=== PATIENT | male | born 1935 | race Caucasian/White ===

== ENCOUNTER 2025-08-22 09:27 | Outpatient (AMB) | payer MEDICARE, SELFPAY ==
[2025-08-22 09:30] VITALS: BMI 23.9
--- NOTE | 2025-08-22 09:30 | A.PHYSOV_ITS ---
Vital Signs 08/22/25 09:30 Height 5 ft 9 in Weight 162 lb BMI 23.9 Intake Visit Reasons: left knee injection Intake Note: Patient is a 89 year old male in office today for a left knee injection. Allergies morphine Allergy (Unknown, Verified 08/22/25 09:30) Unknown HPI Comments Details: History of Present Illness The patient is an 89 year old male presenting for a follow-up visit for chronic neck pain and increasing left knee pain. He has a history of chronic right-sided neck pain since a crushing injury in 1994, for which he was diagnosed with several compression fractures but did not undergo surgery. He has had prior occipital nerve blocks which provided excellent but short-lived benefit. He also reports hand numbness and dropping things. Regarding his left knee, he reports increasing pain. Left knee X-rays from January 19, 2024, were consistent with tricompartmental degenerative changes, more severe in the medial tibiofemoral compartment. A left knee injection on February 21, 2025, provided excellent temporary relief. Past medical history is significant for two minor heart attacks in May, which resulted in four ambulance rides to the emergency room. Following this, he was very weak and received home nursing, physical therapy, occupational therapy, and speech therapy, but these services were discontinued as they were found to be overwhelming and exhausting for him. He has a history of multilevel lumbar fusion. Pain Description - Neck Pain: Reports chronic pain, primarily on the right side. - Left Knee Pain: Reports increasing pain. - Left Shoulder Pain: Pain occurs at night, particularly around 2 a.m. when getting up, and is exacerbated by moving his arm over his head, lying on that side, and lifting his arm. - Hand Symptoms: Reports hand numbness and dropping things. Results - Imaging: - Left knee X-rays from January 19, 2024, show tricompartmental degenerative changes, more severe in the medial tibiofemoral compartment. [facility] Medical History (Updated 08/22/25 @ 09:57 by Venu Xavier DO) Post laminectomy syndrome Left shoulder pain Cervical radiculitis Neck pain Left knee DJD Surgical History History of lumbar fusion History of cholecystectomy Pacemaker H/O total knee replacement History of hip replacement Social History Alcohol intake: current Alcohol intake frequency: does not drink Patient Tobacco Use Status: Never used Tobacco Review of Systems Narrative Review of Systems - Constitutional: Denies fever or chills. - Reports weakness and exhaustion following recent heart attacks and subsequent physical therapy. - Musculoskeletal: Reports chronic right-sided neck pain, increasing left knee pain, and left shoulder pain, particularly at night. - Neurological: Reports hand numbness and dropping things. - Gastrointestinal: Denies any change in bowel habits. - Genitourinary: Denies any change in bladder habits. Physical Exam Exam Exam: Physical Exam Patient was examined while sitting in the wheelchair. His gait was not tested today. Cervical range of motion was restricted in all planes. Spurling maneuver was negative. Restricted abduction in left shoulder. Painful end point of abduction. Tenderness with palpation over left deltoid muscle. Neurological examination of upper extremities was nonfocal. Examination of the left knee reveals pain with palpation over medial joint line. No ligamentous i nstability. Crepitance present with flexion-extension. Vital Signs: BMI result Body Mass Index 23.9 Office Procedures AMB Knee Injection AMB Knee Injection Procedure Details: With patient in sitting position medial aspect of the left knee was prepped with Betadine. 1.5 inch 25 gauge hypodermic needle was introduced percutaneously and advanced into the joint. After negative aspiration for blood to the volume of 4 cc containing 40 mg of triamcinolone and 2% lidocaine was injected without resistance. Patient tolerated procedure very well without complications with excellent anesthetic response. Knee Injection - : Left All charges added?: Procedure code (CPT) selection complete Office Meds Kenalog 40 mg/mL suspension for injection Performing Provider: Venu Xavier DO Performing Location[facility] Administered by: Venu Xavier DO on 08/22/25 09:56 Dose Route Admin Location Dispensed Lot Number Expiration Date [facility] [place] [employer] 40 mg intra-articular 1 mL [id number] [employer] Total Dispensed Waste 1 mL 0 % lidocaine (PF) 20 mg/mL (2 %) injection solution Performing Provider: Venu Xavier DO Performing Location: [facility] Administered by: Venu Xavier DO on 08/22/25 09:56 Dose Route Admin Location Dispensed Lot Number Expiration Date [facility] [place] [employer] 40 mg intra-articular 5 mL [id number] [facility] Total Dispensed Waste 5 mL 60 % Assessment & Plan Assessment & Plan (1) Left knee DJD: Code(s): M17.12 - Unilateral primary osteoarthritis, left knee Category: Medical Qualifiers: Osteoarthritis type: primary Qualified Code(s): M17.12 - Unilateral primary osteoarthritis, left knee (2) Neck pain: Code(s): M54.2 - Cervicalgia Category: Medical (3) Cervical radiculitis: Code(s): M54.12 - Radiculopathy, cervical region Category: Medical (4) Left shoulder pain: Code(s): M25.512 - Pain in left shoulder Category: Medical (5) Post laminectomy syndrome: Code(s): M96.1 - Postlaminectomy syndrome, not elsewhere classified Category: Medical Plan Pain Management - Analgesia: The patient previously had a left knee injection on February 21, 2025, which provided temporary relief. - He has a history of occipital nerve blocks for neck pain with excellent but short-lived benefit. - Activities of Daily Living: Recent home physical and occupational therapy was found to be too exhausting and was discontinued. - He reports difficulty with walking exercises due to pain. Plan Patient was informed and verbally consented to the use of an ambient scribe for clinic note documentation during this visit. 1. Left Knee Pain The patient presents with increasing left knee pain, with imaging confirming severe tricompartmental degenerative changes. Given his prior positive but temporary response, a left knee injection was administered during today's visit. 2. Left Shoulder Pain The patient has new-onset left shoulder pain, which could be referred from his neck. The plan is to observe for any improvement following the systemic effect of the steroid from the knee injection. If the shoulder pain does not improve in a couple of weeks, he is to call to schedule a follow-up visit to consider a shoulder injection. 3. Chronic Neck Pain The patient has chronic neck pain with new associated symptoms of hand numbness and dropping things, suggesting a possible radiculopathy. A repeat MRI is indicated, as his last one was a long time ago. An MRI requires a formal office visit for ordering; an attempt will be made to add him to the schedule today to facilitate this. Discussion Notes I discussed the patient's complaints of increasing left knee pain, left shoulder pain, and his chronic neck issues. I administered a left knee injection for his osteoarthritis. Regarding the shoulder pain, I explained that it could be referred from his neck, and a steroid injection into the shoulder could be a future option if symptoms do not improve after the systemic effects of the knee injection. We discussed his new symptoms of hand numbness and dropping items, which are concerning for a cervical spine issue. I explained that a new MRI is necessary but requires an office visit for me to order it. I informed him that we would check my schedule for an immediate opening to accommodate this visit today. Patient Instructions - You received an injection in your left knee today to help with your pain. - If your left shoulder pain does not get any better in about two weeks, please call our office to schedule another appointment to discuss a possible injection for your shoulder. - We need to order a new MRI for your neck because of your ongoing pain and new symptoms like hand numbness. - To order an MRI, we need to have a separate office visit. - We will try to get you in for a visit today while you are here so we can order the MRI. Orders: Orders AMB Knee Injection Today M17.12 - Unilateral primary osteoarthritis, left knee Coding Level of Care Code Est Pt Level 4 (81874) Add On Problem Visit Only Diagnoses Primary osteoarthritis of left knee M17.12 Osteoarthritis type: primary Neck pain M54.2 Cervical radiculitis M54.12 Left shoulder pain M25.512 Post laminectomy syndrome M96.1 CPT Codes AMB Knee Injection - Hip/Bursa Injection - : Left ([id number])
--- OUTSIDE RECORDS SUMMARY | 2025-08-22 10:57 | XMS_ITS ---
Author Organization [facility] Care Team Providers Care Supervisor Veneer Name Role Phone Karley Burch Unavailable Unavailable Kit Licona Unavailable Unavailable Joanna Leach Unavailable Unavailable Allergies and adverse reactions No Known Allergies Care Team Name Role Address Phone Organization Dates Kit Licona PCP [address] [facility] [address], [place], [address], [facility] (Office): [facility] 08/29/2021 - 10/07/2021 Karley Burch [address] [facility] [address] [place] [address], [address], [facility] (Office): [facility] 08/29/2021 - 10/07/2021 Joanna Leach [address] [facility] [address] [place] [address], [address], [facility] (Office): [facility] 08/29/2021 - 10/07/2021 Immunizations Immunization Status Vaccine Details Vaccine Code CodeSystem Date Notes SARS-COV-2 (COVID-19) completed SARS-COV-2 (COVID-19) vaccine, mRNA, spike protein, LNP, preservative free, 30 mcg/0.3mL dose Mfg: Pfizer- BioNTech Step 1 of Multi-step 208 CVX created date: 08/29/2021 administere d date: 07/23/2021 Booster vaccine SARS-COV-2 (COVID-19) completed SARS-COV-2 (COVID-19) vaccine, mRNA, spike protein, LNP, preservative free, 30 mcg/0.3mL dose Mfg: Pfizer- BioNTech Step 2 of Multi-step with next step required 208 CVX created date: 08/29/2021 administere d date: 10/31/2020 SARS-COV-2 (COVID-19) completed SARS-COV-2 (COVID-19) vaccine, mRNA, spike protein, LNP, preservative free, 30 mcg/0.3mL dose Mfg: Pfizer- BioNTech Step 1 of Multi-step with next step required 208 CVX created date: 08/29/2021 administere d date: 10/10/2020 Mental Status Section Date Assessment Total Score Description 10/07/2021 CAM 0 No delirium ind icated 09/03/2021 BIMS 15 cognitively int act CAM 0 No delirium ind icated PHQ-9 00 Insurance Providers Coverage Status Coverage Type Relationship to Subscriber Member Identifier Subscriber Identifier Group Identifier Payer Identifier and Other information 2021 Code: 51 Code System OID:[id number] .[id number]. 5 Code System Name: Source of Payment Typology (PHDMN) Display: Managed Care (Private) Translation: Code: Code System: OID:[id number] .[id number]. 1336 Code System Name: Insurance Type Code ([id number]) Display Name: Health Maintenance Organization (HMO) Plan Code: SELF Code System Name: HL7 RoleCode Code System OID:[id number] .[id number] Display Name: Self [id number] Root: [id number] Payer Identifier: Root: [id number] Extension: [id number] Payer Name: [facility] Address: [address] [id number] City: [place] State: [place] Country: [place] Code: 81 Code System OID:[id number] .[id number]. 5 Code System Name: Source of Payment Typology (PHDSC) Display: Self Pay Translation: Code: 09 Code System: OID:[id number] .[id number]. 1336 Code System Name: Insurance Type Code ([id number]) Display Name: Self-pay Problems Problem # Description Date of onset Resolved Date Code CodeSystem Concern Status 1 DYSPHAGIA, OROPHARYNGEAL PHASE 09/07/[address] active 2 PNEUMONIA, UNSPECIFIED ORGANISM 09/07/[address] active 3 ACUTE CHOLECYSTITIS 08/28/2021 55726479 SNOMED C T active 4 ENCOUNTER FOR SURGICAL AFTERCARE FOLLOWING SURGERY ON THE DIGESTIVE SYSTEM 08/28/[address] active 5 ESSENTIAL (PRIMARY) HYPERTENSION 08/28/[address] active 6 GASTRO-ESOPHAGEAL REFLUX DISEASE WITHOUT ESOPHAGITIS 08/28/[address] active 7 HEART FAILURE, UNSPECIFIED 08/28/[address] active 8 HYPERLIPIDEMIA, UNSPECIFIED 08/28/[address] active 9 HYPOTHYROIDISM, UNSPECIFIED 08/28/[address] active 10 MAJOR DEPRESSIVE DISORDER, RECURRENT, UNSPECIFIED 08/28/[address] active 11 MUSCLE WEAKNESS (GENERALIZED) 08/28/[address] active 12 OTHER ABNORMALITIES OF GAIT AND MOBILITY 08/28/[address] active 13 OTHER AMYLOIDOSIS 08/28/[address] active 14 PRESENCE OF CARDIAC PACEMAKER 08/28/[address] active 15 SPINAL STENOSIS, LUMBOSACRAL REGION 08/28/[address] active 16 UNSPECIFIED ATRIAL FIBRILLATION 08/28/[address] active 17 UNSPECIFIED GLAUCOMA 08/28/[address] active 18 UNSTEADINESS ON FEET 08/28/[address] active Reason for Referral No Reasons for Referral Entered Social History Social History Observation Description Start Date End Date Code Code System Current Smoking Status Tobacco smoking consumption unknown 974349837 SNOMED CT Sex Assigned At Male 1935 86978-5 [facility] Gender Identity Sexual Orientation Vital Signs Code Code System Vitals Name Values and Units Timing Information 79407-4 LOINC O2 % BldC Oximetry Value=99.0 Units= % 10/07/2021 07835-1 LOINC Weight Mynao=978.0 Units=Lbs 8462-4 INC Blood Pressure-Diastolic Value=68 Un its=mmHg 10/07/2021 8480-6 INC Blood Pressure-Systolic Znlkl=226 Un its=mmHg 10/07/2021 8867-4 [facility] Heart rate Value=90.0 Units=/min 9279-1 LOINC Respiratory Rate Value=20.0 Units=/m in 10/07/2021 8310-5 INC Body Temperature Value=97.1 Units= F 10/07/2021 53210-2 LOINC Pain Level Value=0.0 10/07/2021 8302-2 LOINC Height Value=69.0 Units=Inches 08/29/2021
--- OUTSIDE RECORDS SUMMARY | 2025-08-22 10:57 | XMS_ITS | Encounter Summary ---
Author Organization [facility] Address [address] [place] [address] Care Team Providers Care Winder Operator Name Role Phone Domonique Elaine MD Primary Care Provider [phone] Encounter Details Date Type Department Care Team (Late st Contact Info) Description 06/20/2025 Results Follow-Up Adult Medicine [facility] [address] [place] [address] Domonique Elaine MD [address] [place], [place] Social History Tobacco Use Types Packs/Day Years Used Date Smoking Tobacco: Never Smokeless Tobacco: Never Alcohol Use Standard Drinks/Week Comments Not Currently 0 (1 standard drink = 0.6 oz pur e alcohol) Housing Instability Answer Date Recorde d Are you worried that in the next 2 months you may not have stable housing? No 07/27/2025 Food Access & Nutrition Answer Date Rec orded Do you have access to a vari ety of food including fruits and vegetables? Yes 07/27/2025 Access to Healthcare Answer Date Record ed Within the last 3 months, andrés w many times did you visit the emergency department for your medical care? 4 07/27/2025 Health Literacy Answer Date Recorded How often do you need to hav e someone help you when you read instructions, pamphlets, or other written material from your doctor or pharmacy? Rarely 07/27/2025 Caregiver: How often do you need to have someone help you when you read instructions, pamphlets, or other written material from your doctor or pharmacy? Not on file 07/27/2025 Financial Risk Answer Date Recorded How hard is it for you to pa y for the very basics like food, housing, medical care, and air conditioning / heating? Not very hard 07/27/2025 Transportation Answer Date Recorded Has the lack of transportati on kept you from meetings, work, or from getting things needed for daily living? No Has the lack of transportati on kept you from medical appointments or from getting medications? No 07/27/2025 Social Isolation Answer Date Recorded How often do you feel lonely or isolated from th ose around you? Never 07/27/2025 Food Risk Answer Date Recorded Within the past 12 months we worried whether our food would run out before we got money to buy more. Never true 07/27/2025 Within the past 12 months th e food we bought just didn't last and we didn't have money to get more. Never true 07/27/2025 Dependent Care Answer Date Recorded Do you need help finding or paying for care for your loved ones. For example, child nutrition director or elderly care for an older adult? No 07/27/2025 Education Answer Date Recorded Do you think completing more education or training, like finishing a GED, going to college, or learning a trade, would be helpful for you? No 07/27/2025 Employment and Income Answer Date Recor ded During the last four weeks, have you been actively looking for work? No 07/27/2025 Living Situation Answer Date Recorded What is your living situation? Unrecognized valu e 07/27/2025 Sex and Gender Information Value Date Recorded Sex Assigned at Male 03/22/2025 1:07 PM EDT Legal Sex Male 6:03 PM EST Gender Identity Male 03/22/2025 1:07 PM EDT Sexual Orientation Straight 03/22/2025 1: 07 PM EDT documented as of this encounter Plan of Treatment Upcoming Encounters Date Type Department Care Team (Late st Contact Info) Description 10/16/2025 10:40 AM EST Office Visit [facility] Cardiology [facility] [place] [address] [place] [address] Karley Smyth NP [address] [facility] [address] [place] [phone] 11/08/2025 11:30 AM EST Office Visit Adult Medicine [facility] [address] [place] [phone] Domonique Elaine MD [address] [place] [phone] 01/08/2026 10:30 AM EDT Ancillary Procedure [facility] [address] [facility] [address] [place] [phone] documented as of this encounter Visit Diagnoses Not on filedocumented in this encounter Additional Health Concerns Assessment Noted Time PHQ-9 Depression Total Score: 1 03/15/20 25 3:35 PM EDT documented as of this encounter Care Teams Winder Operator Relationship Specialty Start Date End Date Domonique Elaine MD [address] [place] [address] PCP - General Internal Medicine 07/20/24 documented as of this encounter
--- OUTSIDE RECORDS SUMMARY | 2025-08-22 10:57 | XMS_ITS | Clinical Summary ---
Author Organization [address] [facility] Address [address] [place] [address] Phone Care Team Providers Care Clinical Research Specialist Name Role Phone Domonique Elaine MD Primary Care Provider [phone] Allergies Active Allergy Reactions Criticality Noted Date Comments Morphine High 01/28/2024 Hypotensive Medications aspirin 81 mg EC tablet 1 (one) time each day. 07/07/20 23 Active ondansetron (ZOFRAN) 4 mg tablet Take 1 tablet (4 mg total) by mouth every 8 (eight) hours if needed. 10/21/19 24 Active sertraline (ZOLOFT) 100 mg tablet Take 1.5 tablets (150 mg total) by mouth 1 (one) time each day. Take 1 Tablet by mouth daily. Taking with a 25mg tablet = total 125mg qd Active cyclobenzaprin e (FLEXERIL) 5 mg tablet Take 1 Tablet by mouth 3 times daily as needed for Muscle spasms for up to 10 days. 09/10/19 23 Active tafamidis (Vyndamax) 61 mg capsule Take 1 tablet by mouth 1 (one) time each day. Active acetaminophen (TYLENOL 8 HOUR) 650 mg 8 hr tablet Take 1 tablet (650 mg total) by mouth 2 (two) times a day. Active latanoprost (XALATAN) 0.005 % ophthalmic solution Administer 1 drop into affected eye(s) at bedtime. 06/01/20 12 Active vutrisiran (AMVUTTRA) syringe Inject 0.5 mL (25 mg total) under the skin every 3 (three) months. Active spironolactone (ALDACTONE) 25 mg tablet Take 0.5 tablets (12.5 mg total) by mouth 1 (one) time each day. 45 tablet 3 11/01/19 25 Active fluticasone propionate (FLONASE) 50 mcg/actuation nasal sprayIndicatio ns:Unspecified eustachian tube disorder, bilateral INSTILL 1 SPRAY INTO EACH NOSTRIL ONCE DAILY 32 mL 2 12/15/19 25 Active atorvastatin (LIPITOR) 80 mg tablet Take 1 tablet (80 mg total) by mouth 1 (one) time each day. 90 tablet 3 02/17/20 25 Active midodrine (PROAMATINE) 10 mg tabletIndicati ons:Orthostati c hypotension TAKE 1 TABLET BY MOUTH 3 TIMES A DAY BEFORE MEALS. 270 tablet 3 04/20/20 25 Active levothyroxine (SYNTHROID, LEVOTHROID) 50 mcg tablet Take 1 tablet (50 mcg total) by mouth 1 (one) time each day. 90 tablet 1 04/25/20 25 Active pantoprazole (PROTONIX) 40 mg EC tablet TAKE 1 TABLET BY MOUTH EVERY DAY 90 tablet 06/02/20 25 Active nitroglycerin (NITROSTAT) 0.[address] 1 tablet (0.3 mg total) under the tongue every 5 (five) minutes if needed for chest pain. 100 tablet 1 06/01/20 25 Active cetirizine (ZyrTEC) 10 mg tablet Take 1 tablet (10 mg total) by mouth 1 (one) time each day. Active cholecalcifero l (VITAMIN D-3) 5,000 Units tablet Take 1 tablet (5,000 Units total) by mouth 1 (one) time each day. Active isosorbide mononitrate (IMDUR) 60 mg 24 hr tablet Take 1 tablet (60 mg total) by mouth 1 (one) time each day in the morning. Do not crush or chew. 90 tablet 2 06/27/20 25 Active isosorbide mononitrate (IMDUR) 30 mg 24 hr tablet Take 1 tablet (30 mg total) by mouth 1 (one) time each day in the evening. Do not crush or chew. 90 tablet 1 07/04/20 25 Active furosemide (LASIX) 40 mg tablet Take 2 tablets (80 mg total) by mouth 1 (one) time each day in the morning. 180 tablet 1 07/17/20 25 Active potassium chloride (KLOR-CON M10) 10 mEq CR tablet Take 3 tablets (30 mEq total) by mouth 1 (one) time each day. Tablet may be swallowed whole (do not crush/chew/chirinos ck on) OR broken in half and each half swallowed separately OR dissolved (whole tablet) in ~4 ounces of water (allow ~2 minutes to dissolve, stir well and administer immediately). 270 tablet 2 07/19/20 Active predniSONE (DELTASONE) 20 mg tablet Take 60 mg PO daily for 3 days, then take 40 mg PO daily for 3 days, then 20 mg PO daily for 3 days, then stop 18 tablet 07/27/20 Active ranolazine (Ranexa) 500 mg 12 hr tablet Take 2 tablets (1,000 mg total) by mouth 2 (two) times a day. Do not crush, chew, or split. 360 each 2 08/11/20 Active ranolazine (RANEXA) 1,000 mg 12 hr tablet Take 1 tablet (1,000 mg total) by mouth 2 (two) times a day. Do not crush, chew, or split. 025 Discontinued nystatin (MYCOSTATIN) 100,000 unit/mL suspension Take 5 mL (500,000 Units total) by mouth 4 (four) times a day for 7 days. Swish in mouth and spit out. 140 mL 07/20/20 25 025 Discontinued(Re order) nystatin (MYCOSTATIN) 100,000 unit/mL suspension Take 5 mL (500,000 Units total) by mouth 4 (four) times a day for 7 days. Swish in mouth and spit out. 140 mL 08/01/20 25 025 carbamide peroxide (DEBROX) 6.5 % otic solution Administer 5-10 drops into the left ear 2 (two) times a day for 4 days. 8 mL 08/10/20 25 025 Active Problems Problem Noted Date Diagnosed Date Moderate major depression 08/10/2025 Hypercholesteremia 06/22/2024 Assessment & Plan (01/16/2025 12:48 PM EDT): Continue with atorvastatin. Chronic HFrEF (heart failure with reduced ejection fraction) 06/17/2024 Overview (01/16/2025): June 2024 echocardiogram showing low normal LV systolic function LVEF 50 to 55% with severe concentric left ventricular hypertrophy with granular appearance, abnormal paradoxical septal motion consistent with left bundle branch block, mild biatrial dilatation, mildly increased RV wall thickness, diffuse thickening of aortic valve cusps with reduced excursion with mild aortic stenosis and moderate aortic insufficiency, mild to moderate mitral regurgitation mild to moderate tricuspid regurgitation and dilatation of the ascending aorta at 4.2 cm Assessment & Plan (07/04/2025 3:20 PM EDT): The patient has a history of HFrEF. Last echo showed an LVEF of 45%. 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 The patient is also on medical therapy with spironolactone which we will continue. The patient is unlikely to be able to tolerate additional GDMT due to his orthostatic hypotension. Assessment & Plan (04/20/2025 12:04 PM EDT): Patient has history of mixed ischemic and nonischemic cardiomyopathy. He does not present with any worsening heart failure symptoms. He was recently seen in [place] and was advised that Jardiance would be a good medication for him. His creatinine is normal. The use of an SGLT2 inhibitor is recommended for patients with chronic heart failure in order to reduce hospitalization due to heart failure and cardiovascular mortality, irrespective of the presence of type 2 diabetes (class Ia recommendation from the [employer] heart failure guidelines). As such I have prescribed Jardiance 10 mg once a day. We discussed the slight increased risk of possibly developing a urinary tract infection and I have advised that the patient contact his primary care provider if he were to develop any symptoms of urinary tract infection and to also let us know. He recently had blood work done which is stable. He will repeat a basic metabolic panel 1 to 2 weeks after starting the Jardiance. Otherwise he will continue with his guideline directed medical therapies including furosemide and spironolactone. I've asked the patient to call if they develop worsening symptoms of heart failure such as increased shortness of breath, new or worsening cough, increased swelling in the legs or ankles, or weight gain of more than 2 pounds in one day or 4 pounds in one week. Assessment & Plan (01/16/2025 12:48 PM EDT): Mixed ischemic and nonischemic cardiomyopathy. He is currently compensated on exam. Continue with furosemide, midodrine and spironolactone as well as amyloidosis medications. Unlikely to tolerate further up titration of GDMT. We reviewed heart failure management including low-sodium diet, symptom surveillance, daily weights and medication compliance. The patient is aware they may take extra diuretic for intermittent evidence of mild congestive signs and symptoms. If the increase of frequency of as needed diuretic becomes more regular than they will make our office aware. If the patient has weight gain over 3lbs in one day or 5lbs over several days, they are aware to contact our office. With any severe or sustained symptoms, they are aware to contact EMS via 911 and go to the emergency room. Assessment & Plan (10/26/2024 5:48 PM EST): The patient has a history of heart failure with mildly reduced ejection fraction due to his cardiac amyloidosis. He is currently on diuretic therapy with furosemide and spironolactone. As such, we will continue his current medication regimen. 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 He is currently on midodrine 10 mg orally 3 times daily and he is tolerating the medication well. No significant symptoms of orthostatic dizziness or syncope. Will continue his current medication regiment. Assessment & Plan (01/16/2025 12:48 PM EDT): Positional lightheadedness stable. He gets up slowly. Consider compression stockings. Continue with midodrine. Assessment & Plan (10/26/2024 5:48 PM EST): The patient has a hx of orthostatic hypotension seccondary to his cardiac amyloidosis. Will continue current therapy with midodrine. Orders: midodrine (PROAMATINE) 10 mg tablet; Take 1 tablet (10 mg total) by mouth 3 (three) times a day before meals. Pacemaker 05/29/2023 Overview (01/16/2025): October 06, 2018 - [employer]tronic dual-chamber pacemaker by Dr. Trevizo due to symptomatic bradycardia Assessment & Plan (07/04/2025 3:20 PM EDT): The patient has a pacemaker in place. Last device interrogation showed an adequate device function. Will continue periodic monitoring Assessment & Plan (01/16/2025 12:48 PM EDT): Functioning well on last device check. Nearly 100% V pacing. Will monitor LV function and consider MEDICAL SERVICE REPRESENTATIVE therapy if necessary. Continue to monitor via [facility] device clinic. Primary hypertension 05/29/2023 Assessment & Plan (01/16/2025 12:48 PM EDT): Controlled. Continue with furosemide, midodrine, spironolactone. Chronic subdural hematoma 05/29/2023 Overview (01/16/2025): Patient is 4-1/2 months s/p left bur hole drainage of subdural hematoma. He had brain MRI 11/10/2023 ordered for dizziness, he has scattered T2 hyperintensities in supratentorial white matter and patchy T2 signal in the central tran, nonspecific but likely chronic microvascular ischemic disease. He also has decreased/small subdural collection along the posterior left convexity. I reviewed the MRI images with the patient and his daughter. He is still having issues with dizziness, states when he lays flat on his back he gets dizzy, he also notes when laying on his left side he gets a pressure sensation in the top of the left head near his surgery site, but no pain or headache. He mentioned that his left hand will feel cold at times, in general his left arm feels weak, he will get sharp pains in the arm. 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 He has an upcoming upper extremity EMG/NCS study ordered 01/15/2024 in [place], his neurology appointment was rescheduled to sometime in December as well. He has been using a walker, did come up to the office in a wheelchair, states he is feeling more tired and his left knee is sore today. He has history of left carpal tunnel release 2012. A little over a year ago he also saw Dr. Wheeler for neck pain, his cervical CT scan showed extensive degenerative arthritic changes, pannus formation behind C1-C2 and autofusion of C1-C2 3 C3-4 and C6-C7. He notes some decreased range of motion with flexion extension >looking left and right. CAD (coronary artery disease) 01/01/2023 Overview (01/16/2025): Coronary artery disease status post RCA stenting 10/19/24 NM STRESS TEST WITH MYOCARDIAL PERFUSION 10/19/2024, 10/19/2024 10/19/2024 Interpretation Summary Nuclear imaging of the left ventricle shows a dilated cavity size. Myocardial perfusion imaging of the left ventricle reveals a small, moderate, fixed perfusion defect of the apical septal and apical wall after CT attenuation correction was applied to the study Gated SPECT imaging was performed which demonstrated abnormal left ventricular systolic function. There is hypokinesis of the inferior wall and apex. The calculated LVEF is 44 %. TID ratio is normal. Impression Abnormal Regadenoson stress test with nuclear imaging. No chest pain or EKG changes consistent with ischemia. Nuclear imaging revealed a small, moderate, fixed defect of the apical wilkes consistent with infarct There is a normal TID ratio. Gated SPECT imaging was performed and revealed a reduced LVEF of 44 %. Signed by: SAMANTHA Ramirez on 10/19/2024 3:37 PM, Signed by: Ant Chen MD on 10/19/2024 4:34 PM Assessment & Plan (07/04/2025 3:20 PM EDT): The patient has a history of coronary artery disease. Left heart cath showed evidence of significant stenosis in the distal left main extending into the proximal circumflex, ramus, and proximal LAD. The patient is not a candidate for CABG given his advanced age and other comorbidities. The interventional cardiology service recommended medical therapy with consideration of a high risk PCI if the patient's symptoms are not adequately controlled with medical therapy. I had an extensive conversation with the interventional cardiology service (Dr. Wild) regarding the patient's CAD. I discussed the patient's complex CAD with the patient and his family member. We discussed the options of continued titration of medical therapy versus opting for high risk PCI. After conversation, the patient stated that he would like to continue on medical therapy only for now. As such, given his continued episodes of chest discomfort, we will continue with isosorbide mononitrate 60 mg orally in the morning and the patient will start extra supplemental nitrate 30 mg orally in the evening. The patient will continue the rest of his current medication regimen including aspirin, atorvastatin, and ranolazine. The patient has a history of coronary artery disease. During today's visit, we reviewed the warning signs that should prompt an urgent medical evaluation. Specifically, we discussed that the patient should go to the hospital if she develops any chest discomfort at rest not responsive to sublingual nitro or worsening chest discomfort with exertion. Assessment & Plan (04/20/2025 12:04 PM EDT): History of coronary artery disease status post previous RCA stenting. Last nuclear stress test in October 2024 did not show any evidence of ischemia. I have reviewed with the patient the importance of a heart healthy lifestyle which includes eating a low-fat low-salt diet, getting regular exercise, maintaining a healthy weight, not smoking, and following up with routine medical care. Assessment & Plan (01/16/2025 12:48 PM EDT): Previous RCA stenting Last Nuclear stress test showed no ischemia in October 2024. Echocardiogram from June 2024 showed low normal LV systolic function. Had two episodes of chest pain resolving quickly with nitroglycerin. No further symptoms. Continue with aspirin, atorvastatin, prn nitroglycerin, ranolazine and spironolactone. We discussed risk reduction through lifestyle choices including healthy diet, routine exercise and weight management. Assessment & Plan (10/26/2024 5:48 PM EST): The patient has a history of coronary artery disease status post stent to the proximal RCA. The patient is on medical therapy with aspirin, atorvastatin, and ranolazine. He has had two episodes of atypical chest discomfort since his last visit. Therefore, will proceed with an ischemic reevaluation with a nuclear stress test. Orders: Regadenoson (Lexiscan) nuclear stress test with myocardial perfusion; Future CBC and differential; Future Comprehensive metabolic panel; Future Lipid panel with reflex to direct LDL; Future Shortness of breath 05/21/2022 Assessment & Plan (10/26/2024 5:48 PM EST): The patient has chronic exertional dyspnea. The patient has a history of a right sided pleural effusion s/p thoracentesis in the past. On today's visit, he had decreased breath sounds in the right lung base. Therefore, will order a chext xray for further evaluation. 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 He continues on tafamidis and vutrisiran. Assessment & Plan (01/16/2025 12:48 PM EDT): Currently endorse macroglossa and encouraged patient to report symptoms to amyloid clinic. Continue with tafamidis and vutrisiran. Currently participating in the [facility] clinical trial. Assessment & Plan (10/26/2024 5:48 PM EST): The patient has a history of cardiac amyloidosis for which he is followed at the [facility] amyloidosis clinic. He is on therapy with tafamidis. Also, he was recently switched from patrisiran to vutrisiran as a part of his clinical trial for amyloidosis. The patient states that he has been having multiple symptoms since switching medications. He was encouraged to contact the clinical trial coordinator to discuss his symptoms and the next steps in the management of the medication. Atrial fibrillation 01/20/2017 Overview (01/16/2025): September 24, 2023 - successful Watchman procedure with confirmed closure by JESSICA in December 2023 now off apixaban Assessment & Plan (04/20/2025 12:04 PM EDT): Patient has atrial fibrillation. Heart rate is well-controlled. He had successful watchman placed therefore he is not on anticoagulation. Assessment & Plan (01/16/2025 12:48 PM EDT): Per last device check has a 95.6% burden of atrial fibrillation therefore still paroxysmal. Asymptomatic. Not on rate control. Successful Watchman therefore not on apixaban. Orders: ECG 12 lead DVT, lower extremity 08/27/2016 Carotid stenosis 07/10/2016 Overview (06/22/2024): S/p CEA in 2012 (Dr. Lozano), Aortic regurgitation 07/10/2016 Assessment & Plan (10/26/2024 5:48 PM EST): The patient has a history of aortic valve insufficiency. On the echocardiogram done in June 2024 the aortic valve insufficiency was noted to be moderate in severity. Therefore, no indication for any intervention at this point. Will continue periodic echocardiographic monitoring. 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 Short segment Taylor's at EGD 06/01/18, no dysplasia. 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 Sobeida Chin clinic Resolved Problems Problem Noted Date Diagnosed Date Resolved Date CHF (congestive heart failure) 06/09/2025 06/09/2025 Pleural effusion 06/17/2024 10/10/2024 Chest pain 01/16/2022 10/10/2024 Overview (06/22/2024): Last Assessment & Plan: In review of his records, he did have an abdominal CAT scan in 2016 that noted normal in caliber aorta with atherosclerosis. Patient states that he had an episode of chest pain while mowing 2 days ago. The chest pain dissipated once he sat down in his recliner. He reports he has had episodes of chest pain at rest in the past, but not with exertion. It did not radiate. Patient does have multiple cardiac risk factors and therefore I recommended he undergo an ischemic work-up. I recommended that we proceed with a pharmacologic nuclear stress test. He is in agreement. He is going to be at the amyloid clinic in mid February and states he is due for extensive testing including an echocardiogram. Patient advised to seek emergency medical attention by calling 911 if they were to develop severe dyspnea, chest pain that did not resolve with , or if they were to faint. Atherosclerosis of aorta 01/16/202211/2024 Overview (01/16/2025): Known atherosclerotic changes to the abdominal aorta with no evidence of abdominal aortic aneurysm also seen on abdominal CAT scan 2016 that showed atherosclerosis of his aorta. Assessment & Plan (01/16/2025 12:48 PM EDT): Continue with aspirin, atorvastatin, prn nitroglycerin, ranolazine and spironolactone. We discussed risk reduction through lifestyle choices including healthy diet, routine exercise and weight management. Encounters Date Type Department Care Team Description 08/10/2025 2:00 PM EST Office Visit [address] [phone] Domonique Elaine MD Moderate major depression (CMS/HCC V24, CMS/HCC V28) (Primary Dx); Type 2 diabetes mellitus without complication, without long-term current use of insulin (CMS/HCC V24, CMS/HCC V28); Hearing loss of left ear due to cerumen impaction 07/27/2025 1:30 PM EST Office Visit [address] [phone] Elsie Zapata PA Acute idiopathic gout of left wrist (Primary Dx); Hypotension due to hypovolemia; Chronic HFrEF (heart failure with reduced ejection fraction) (CMS/HCC V24, CMS/HCC V28) 07/07/2025 Results Follow-Up [address] [phone] Domonique Elaine MD 07/05/2025 11:03 AM EDT - 07/05/2025 11:59 PM EDT Hospital Encounter [address] [phone] Gagging episode Discharge Disposition: Home or Self Care 07/05/2025 10:00 AM EDT Office Visit [address] [phone] Domonique Elaine MD Gagging episode (Primary Dx); Acquired hypothyroidism; Gastroesophageal reflux disease without esophagitis 06/20/2025 Results Follow-Up Adult [address] [phone] Domonique Elaine MD 06/19/2025 1:56 PM EDT - 06/19/2025 11:59 PM EDT Hospital Encounter [address] [phone] Lumbosacral radiculopathy Discharge Disposition: Home or Self Care 06/19/2025 1:00 PM EDT Office Visit [address] [phone] Domonique Elaine MD Hospital discharge follow-up (Primary Dx); NSTEMI (non-ST elevated myocardial infarction) (CMS/HCC V24, CMS/HCC V28); Physical deconditioning; Lumbosacral radiculopathy; Hypercholesteremia 06/09/2025 2:30 PM EDT Office Visit [facility] [address] [place] [id number] Odin Hamlin MD Coronary artery disease involving hoonah coronary artery of hoonah heart with other form of angina pectoris (CMS/HCC V24) (Primary Dx); Chronic HFrEF (heart failure with reduced ejection fraction) (CMS/HCC V24, CMS/HCC V28); Orthostatic hypotension; Pacemaker; Shortness of breath; Nonrheumatic aortic valve insufficiency 05/31/2025 Telephone [facility] - [address] [place] [id number] Karley Beach NP from Last 3 Months Immunizations Immunization Administration Dates Next Due Influenza trivalent, 0.5mL ( Fluad) 65yo and older 05/15/2023,05/21/2022,06/06/2021,06/23,05/11/2018,06/02/2017 Influenza trivalent, 0.5mL, preservative free (Fluarix; FluLaval; Fluzone) ages 6mo and older (Afluria) 3 years and older 06/28/2014,07/07/2013,07/08/2011,07/23,06/06/2009,05/30/2008,06/11/2007 ,08/06/2006,07/15/2005 Influenza trivalent, with pr eservative (Fluzone; Afluria) 6mo and older 07/17/2016 Influenza, Unspecified 06/25/2019,07/16/2016 Pneumococcal conjugate 13 va lent (Prevnar 13, PCV13) 2mo and older 09/12/2015 Pneumococcal polysaccharide 23 valent (Pneumovax 23) 2yo and older 09/12/2015,06/11/2007 Td Tetanus diptheria (Tdvax) 7yo and older 06/11/2007 Tdap Tetanus diptheria acell ular pertussis (Boostrix; Adacel) 7yo and older 11/29/2013,06/11/2007 Zoster Live 09/11/2010 Zoster recombinant (Shingrix ) 19yo and older 07/12/2011 Surgical History Surgery Date Site/Laterality Comments TURP / TRANSURETHRAL INCISIO N / DRAINAGE PROSTATE PROCEDURE: HISTORICAL TURP; COMMENT: x2, also surgery for prostate/urethral strictures CAROTID ENDARTERECTOMY 01/2013 Right PROCEDURE: HISTORICAL CAROTID ENDART; COMMENT: Dr Lozano ABDOMINAL SURGERY 09/10/2013 PROCEDURE: OR UNLISTED PROCEDURE ABDOMEN PERITONEUM & OMENTUM; COMMENT: x5 exlap, ANAMIKA for SB volvulus, incisional hernia OTHER SURGICAL HISTORY 2013 Left PROCEDURE: OR LAPAROSCOPY SURGICAL ORCHIECTOMY CATARACT EXTRACTION 2013 Bilateral PROCEDURE: HISTORICAL CATARACT REMOVAL HAND SURGERY Right PROCEDURE: HISTORICAL HAND SURGERY; COMMENT: [facility] [place] TOTAL KNEE ARTHROPLASTY Right PROCEDURE: HISTORICAL TOTAL KNEE REPLACE; COMMENT: Dr. Zavala 2017 BACK SURGERY 2018 PROCEDURE: HISTORICAL BACK SURGERY; COMMENT: Lumbar fusion done in [place] BACK SURGERY 2016 PROCEDURE: HISTORICAL BACK SURGERY; COMMENT: x4 previous low back surgical procedures HIP ARTHROPLASTY 06/2012 Right PROCEDURE: HISTORICAL HIP REPLACEMENT; COMMENT: Dr Zavala KNEE SURGERY Left PROCEDURE: HISTORICAL KNEE SURGERY; COMMENT: arthroscopy FOOT SURGERY Left PROCEDURE: HISTORICAL FOOT SURGERY; COMMENT: great toe BACK SURGERY PROCEDURE: HISTORICAL BACK SURGERY; COMMENT: L3 decompression dr [id number] CARPAL TUNNEL RELEASE Left PROCEDURE: HISTORICAL CARPAL TUNNEL REL; COMMENT: Dr Gregory 2012 UPPER GASTROINTESTINAL ENDOSCOPY 06/16/2014 PROCEDURE: OR UPPER GI ENDOSCOPY PERFORMED; COMMENT: Short segment of Taylor's, no dysplasia COLONOSCOPY 12/01/2006 PROCEDURE: HISTORICAL COLONOSCOPY; COMMENT: [email or web address], negative screening examination. COLONOSCOPY 06/01/2018 PROCEDURE: HISTORICAL COLONOSCOPY; COMMENT: Solitary diminutive hyperplastic polyp. 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 Russ OTHER SURGICAL HISTORY 09/24/2023 PROCEDURE: HISTORY OTHER; COMMENT: Watchman device placement, Dr. 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 Actinic keratosis 10/10/2015 DX:Actinic ker atosis Cardiac amyloidosis ([facility] V24, [facility] V28) 03/26/2017 DX:Cardiac amyloidosis (HCC) ; COMMENT: Followed in [facility] Dx 2017 Iron deficiency anemia 03/19/2018 DX:Iron d eficiency anemia Peripheral arterial disease ([facility]/HCC V24) 03/19/2018 DX:Peripheral arterial disea se (HCC) Anxiety 03/19/2018 DX:Anxiety Foot drop, right 03/19/2018 DX:Foot drop, r ight Biceps tendon rupture 03/19/2018 DX:Biceps tendon rupture Abnormal EKG 04/07/2014 DX:Abnormal EKG 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 Sobeida Chin [facility] Cardiac murmur 07/10/2016 DX:Cardiac murmu r Carotid stenosis 07/10/2016 DX:Carotid sten osis; COMMENT: S/p CEA in 2013 (Dr. Lozano), last US by Dr. Gillette. 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 Nonhealing nonsurgical wound 01/05/2014 DX: Nonhealing nonsurgical wound Osteoarthritis of both knees 03/19/2018 DX: Osteoarthritis of both knees Paroxysmal atrial fibrillati on (CMS/HCC V24, CMS/HCC V28) 01/20/2017 DX:Paroxysmal atrial fibrill ation (HCC) Subclinical hypothyroidism 01/18/2015 DX:Chirinos bclinical hypothyroidism History of permanent cardiac pacemaker placement 10/20/2018 DX:History of permanent card iac pacemaker placement History of squamous cell car cinoma of skin 03/12/2021 DX:History of squamous cell carcinoma of skin; COMMENT: 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 is dermal metastases to the site versus primary tumor cannot be excluded) & left leg (well differentiated, invasive) Hypertension Chest pain Chronic GERD Hypotension Family History Medical History Relation Name Comments Heart attack Father , [place] ag e 59 Heart attack Mother Heart attack Sister 1 CHF, multiple s tents, Aortic Valve surgery, DM Relation Name Status Comments Father (Age 59) heart Mother (Age 86) Sister 1 Sister 2 Alive aortic valve ca bg dm cholest htn Social History Tobacco Use Types Packs/Day Years Used Date Smoking Tobacco: Never Smokeless Tobacco: Never Tobacco Cessation:Counseling Given: Not Answered Alcohol Use Standard Drinks/Week Comments Not Currently [...] Record ed Within the last 3 months, ho w many times did you visit the [...] care for your loved ones. For example, children's ministry director or elderly care for an older [...] Orientation Straight 03/22/2025 1: 07 PM EDT Last Filed Vital Signs Vital Sign Reading Time Taken Comments Blood Pressure 123/74 08/10/2025 3:39 PM EST Pulse 85 08/10/2025 3:39 PM EST Temperature 36.3 C (97.4 F) 08/10/2025 3:39 PM EST Respiratory Rate 14 08/10/2025 3:39 PM EST Oxygen Saturation 95% 08/10/2025 3:39 PM EST Inhaled Oxygen Concentration - - Weight 73.8 kg (162 lb 12.8 oz) 08/10/2025 3:39 PM EST Height 175.3 cm (5' 9 ) 08/10/2025 3:39 PM EST Body Mass Index 24.04 08/10/2025 3:39 PM EST Plan of Treatment Upcoming Encounters Date Type Department Care Team (Late st Contact Info) Description 10/16/2025 10:40 AM EST Office Visit [facility] [address] [place] [address] [place] [phone] Karley Smyth NP [address] [place] [address] [address] [place] [phone] 11/08/2025 11:30 AM EST Office Visit Adult Medicine [address] [phone] Domonique Elaine MD [address] [place] [phone] 01/08/2026 10:30 AM EDT Ancillary Procedure [facility] [address] [facility] [address] [place] [phone] Health Maintenance Due Date Last Done Comments Diabetes: Annual Foot Exam 1945 Diabetes: Annual Retina Eye Exam 1945 Zoster Vaccines (2 of 2) 09/06/2011 07/12/2011, 01/2011 RSV Immunization Adult Patients (1 - 1-dose 75+ series) 2012 Medicare Annual Wellness Visit 08/16/2022 Diabetes: Blood Sugar Control Test (HGBA1C) 05/23/2023 11/20/2022 DTaP,Tdap,and Td Vaccines (4 - Td or Tdap) 11/30/2023 11/29/2013, 06/11/2007, 06/11/2007 COVID-19 Vaccine (4 - season) 2025 07/23/2021, 10/31/2020, 10/10/2020 Hypertension/CHF/CAD Annual BMP Blood Test 10/11/2025 10/11/2024, 03/16/2024, 12/08/2017 Falls Risk Assessment 07/27/2026 07/27/2025 Social Influencers of Health Screening 07/27/2026 07/27/2025 Cholesterol Screening (Lipid Panel) 10/11/2029 10/11/2024, 11/20/2022 Pneumococcal Vaccine: 50+ Years Completed 09/12/2015, 09/12/2015, 06/11/2007 Influenza Vaccine Completed 06/04/2025, , 05/21/2022, Additional history exists Depression Screening Completed 07/27/2025 HIB Vaccines Aged Out No longer eligi ble based on patient's age to complete this topic HPV Vaccines Aged Out No longer eligi ble based on patient's age to complete this topic Hepatitis A Vaccines Aged Out No long er eligible based on patient's age to complete this topic Hepatitis B Vaccines Aged Out No long er eligible based on patient's age to complete this topic IPV Vaccines Aged Out No longer eligi ble based on patient's age to complete this topic MMR Vaccines Aged Out No longer eligi ble based on patient's age to complete this topic Meningococcal ACWY Vaccine Aged Out N o longer eligible based on patient's age to complete this topic Meningococcal B Vaccine Aged Out No l onger eligible based on patient's age to complete this topic RSV Immunization Patients Under 20 months Aged Out No longer eligible based on patient's age to complete this topic Varicella Vaccines Aged Out No longer eligible based on patient's age to complete this topic Medical Devices Implanted Type [employer] Device Identifier Shelf Expiration Date Model / Serial / Lot Medt-Card Ene Xt Dr Avalos [id number] Implanted: (Quantity not on file) Cardiac Pacemaker [employer] - CARDIAC RHYTH-CRDM ENE XT DR AVALOS [id number] / [id number] / Medt-Card Stella Xt Dr Avalos [id number] Implanted: (Quantity not on file) Cardiac Pacemaker [employer] - CARDIAC RHYTH-CRDM ENE XT DR AVALOS / [id number] / Procedures Procedure Name Priority Date/Time Associated Diagnosis Comments XR CHEST 2 VIEWS Routine 07/05/2025 11:1 9 AM EDT Gagging episode XR LUMBAR SPINE 4+ VIEWS Routine 06/19/2025 2:11 PM EDT Lumbosacral radiculopathy ECG EXTERNAL Routine 06/06/2025 1:54 PM EDT COMPREHENSIVE METABOLIC PANEL Routine 10/11/2024 12:04 PM EST 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 Chronic elevation of the right hemidiaphragm. -------- FINAL REPORT -------- Dictated By: Christina Carmona Dictated Date: 07/05/2025 16:14 ET Assigned Physician: Christina Carmona Reviewed and Electronically Signed By: Christina Carmona Signed Date: 07/05/2025 16:15 ET Workstation ID: [id number] Transcribed By: Self Edit Transcribed Date: 07/05/2025 16:14 ET Narrative 07/05/2025 4:15 PM EDT HISTORY: cough with TECHNIQUE: PA and lateral radiographs of the chest COMPARISON: Chest radiograph from 10/11/2024 FINDINGS: There is a normal cardiomediastinal silhouette. Blunting of the right costophrenic angle suggesting pleural thickening. There is elevation of the right hemidiaphragm with atelectasis. The lungs are otherwise clear. Left-sided pacemaker is identified. Surgical dipti overlying the right upper quadrant. Postoperative changes of the lumbar spine. Moderate degenerative changes of the thoracic spine. Procedure Note Christina Carmona MD - 07/05/2025 HISTORY: cough with TECHNIQUE: PA and lateral radiographs of the chest COMPARISON: Chest radiograph from 10/11/2024 FINDINGS: There is a normal cardiomediastinal silhouette. Blunting of the rightcostophrenic angle suggesting pleural thickening. There is elevation ofthe right hemidiaphragm with atelectasis. The lungs are otherwise clear.Left-sided pacemaker is identified. Surgical dipti overlying the rightupper quadrant. Postoperative changes of the lumbar spine. Moderatedegenerative changes of the thoracic spine. IMPRESSION: No acute cardiopulmonary process. Chronic elevation of the right hemidiaphragm. -------- FINAL REPORT -------- Dictated By: Christina Carmona Dictated Date: 07/05/2025 16:14 ET Assigned Physician: Christina Carmona Reviewed and Electronically Signed By: Christina Carmona Signed Date: 07/05/2025 16:15 ET Workstation ID: [id number] Transcribed By: Self Edit Transcribed Date: 07/05/2025 16:14 ET us Domonique Elaine MD IMG XR PROCEDURES Final Result * XR Lumbar Spine 4+ Views (06/19/2025 2:11 PM EDT) Anatomical Region Laterality Modality Spine, L-spine Radiographic Brandi ging 06/19/2025 2:56 PM EDT Impressions 06/19/2025 3:13 PM EDT Status post posterior thoracolumbar spinal fusion without evidence of hardware complication. -------- FINAL REPORT -------- Dictated By: Christina Carmona Dictated Date: 06/19/2025 14:56 ET Assigned Physician: Christina Carmona Reviewed and Electronically Signed By: Christina Carmona Signed Date: 06/19/2025 15:13 ET Workstation ID: [id number] Transcribed By: Self Edit Transcribed Date: 06/19/2025 14:56 ET Narrative 06/19/2025 3:13 PM EDT HISTORY: Hardware placement evaluation TECHNIQUE: 4 views of the lumbar spine COMPARISON: Lumbar spine radiograph from 10/27/2013 FINDINGS: The patient is status post posterior thoracolumbar spinal fusion. No perihardware lucencies or periprosthetic fractures are identified. Screws extend through the bilateral sacroiliac joints. There is L1 on L2 and grade 1 retrolisthesis. Decreased disc height at multiple levels with endplate sclerosis. Small anterior osteophytes at the anterior lumbar spine. Large amount stool throughout the colon. The patient is status post right hip arthroplasty. Surgical dipti overlying the right upper quadrant. Procedure Note Christina Carmona MD - 06/19/2025 HISTORY: Hardware placement evaluation TECHNIQUE: 4 views of the lumbar spine COMPARISON: Lumbar spine radiograph from 10/27/2013 FINDINGS: The patient is status post posterior thoracolumbar spinal fusion. Noperihardware lucencies or periprosthetic fractures are identified. Screwsextend through the bilateral sacroiliac joints. There is L1 on L2 andgrade 1 retrolisthesis. Decreased disc height at multiple levels withendplate sclerosis. Small anterior osteophytes at the anterior lumbarspine. Large amount stool throughout the colon. The patient is status postright hip arthroplasty. Surgical dipti overlying the right upperquadrant. IMPRESSION: Status post posterior thoracolumbar spinal fusion without evidence ofhardware complication. -------- FINAL REPORT -------- Dictated By: Christina Carmona Dictated Date: 06/19/2025 14:56 ET Assigned Physician: Christina Carmona Reviewed and Electronically Signed By: Christina Carmona Signed Date: 06/19/2025 15:13 ET Workstation ID: [id number] Transcribed By: Self Edit Transcribed Date: 06/19/2025 14:56 ET us Domonique Elaine MD IMG XR PROCEDURES Final Result * ECG-External (06/06/2025 1:54 PM EDT) Historical Provider ECG ORDERABLES Final Res ult * (ABNORMAL) Lipid panel with reflex to direct LDL (10/11/2024 12:04 PM EST) Cholesterol 94 0 - 200 mg/dL LAB CHEMISTRY METHOD 10/11/2024 3:09 PM EST [facility] Triglycerides 128 0 - 150 mg/dL LAB CHEMISTRY METHOD 10/11/2024 3:09 PM [facility] HDL 29(L) >=40 mg/dL LAB CHEMISTRY METHOD 10/11/2024 3:09 PM EST [facility] LDL Calculated 39 0 - 100 mg/dL LAB CHEMISTRY METHOD 10/11/2024 3:09 PM EST [facility] VLDL Cholesterol Tom 25.6 mg/dL LAB CHEMISTRY METHOD 10/11/2024 3:09 PM EST [facility] Non HDL Chol. (LDL+VLDL) 65 <145 mg/dL LAB CHEMISTRY METHOD 10/11/2024 3:09 PM [facility] Chol/HDL Ratio 3.2 0.0 - 4.4 LAB CHEMISTRY METHOD 10/11/2024 3:09 PM [facility] Blood Venous blood specimen / Unknown Venipuncture / Unknown 10/11/2024 12:04 PM EST 10/11/2024 12:04 PM EST Odin Hamlin MD LAB BLOOD ORDERABLES F inal Result [facility] [address] [place] [address], [place] [phone] * (ABNORMAL) Comprehensive metabolic panel (10/11/2024 12:04 PM EST) Sodium 137 133 - 145 mmol/L LAB CHEMISTRY METHOD 10/11/2024 3:09 PM [facility] Potassium 4.1 3.5 - 5.5 mmol/L LAB CHEMISTRY METHOD 10/11/2024 3:09 PM [facility] Chloride 101 96 - 110 mmol/L LAB CHEMISTRY METHOD 10/11/2024 3:09 PM [facility] CO2 30 21 - 32 mmol/L LAB CHEMISTRY METHOD 10/11/2024 3:09 PM [facility] Anion Gap 6 3 - 11 LAB CHEMISTRY METHOD 10/11/2024 3:09 PM [facility] Glucose 132(H) 70 - 100 mg/dL LAB CHEMISTRY METHOD 10/11/2024 3:09 PM [facility] BUN 23 5 - 25 mg/dL LAB CHEMISTRY METHOD 10/11/2024 3:09 PM [facility] Creatinine 1.03 0.70 - 1.30 mg/dL LAB CHEMISTRY METHOD 10/11/2024 3:09 PM [facility] eGFR 70 >=60 mL/min/1. 73m2 LAB CHEMISTRY METHOD 10/11/2024 3:09 PM [facility] Comment:Calculation based on the Chronic Kidney Disease Epidemiology Collaboration (CKD-EPI) equation refit without adjustment for race. BUN/Creatinine Ratio 22.3 LAB CHEMISTRY METHOD 10/11/2024 3:09 PM [facility] Calcium 9.6 8.5 - 10.5 mg/dL LAB CHEMISTRY METHOD 10/11/2024 3:09 PM [facility] AST (SGOT) 56(H) 10 - 42 unit/L LAB CHEMISTRY METHOD 10/11/2024 3:09 PM [facility] ALT (SGPT) 46 10 - 60 unit/L LAB CHEMISTRY METHOD 10/11/2024 3:09 PM EST [facility] Alkaline Phosphatase 159(H) 42 - 121 unit/L LAB CHEMISTRY METHOD 10/11/2024 3:09 PM [facility] Total Protein 7.3 6.0 - 8.0 g/dL LAB CHEMISTRY METHOD 10/11/2024 3:09 PM [facility] Albumin 3.4 3.2 - 5.0 g/dL LAB CHEMISTRY METHOD 10/11/2024 3:09 PM [facility] Total Bilirubin 0.7 0.0 - 1.4 mg/dL LAB CHEMISTRY METHOD 10/11/2024 3:09 PM [facility] Blood Venous blood specimen / Unknown Venipuncture / Unknown 10/11/2024 12:04 PM EST 10/11/2024 12:04 PM EST Odin Hamlin MD LAB BLOOD ORDERABLES F inal Result [facility] [address] [place] [address], * (ABNORMAL) Hemoglobin A1c (11/20/2022) Hemoglobin A1C 6.8(A) <=6.5 % Blood Venous blood specimen / Unknown Historical Provider LAB BLOOD ORDERABLES Shaila l Result from Last 3 Months or Most Recently Relevant to Health Maintenance Insurance [employer] - [place] MEDICARE ADVANTAGE Advance Directives Documents on File Type Date 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 Health Care Decision (hx) 07/09/2023 AD OLIVIER DIRECTIVE Health Care Decision (hx) 07/09/2023 AD OLIVIER DIRECTIVE Health Care Decision (hx) 07/09/2023 AD OLIVIER DIRECTIVE Health Care Decision (hx) 07/09/2023 AD OLIVIER DIRECTIVE Health Care Decision (hx) 07/09/2023 AD OLIVIER DIRECTIVE Health Care Decision (hx) 07/09/2023 AD OLIVIER DIRECTIVE Health Care Decision (hx) 07/09/2023 AD OLIVIER DIRECTIVE Health Care Decision (hx) 07/09/2023 AD OLIVIER DIRECTIVE Health Care Decision (hx) 07/09/2023 AD OLIVIER DIRECTIVE Health Care Decision (hx) 07/09/2023 AD OLIVIER DIRECTIVE Health Care Decision (hx) 07/09/2023 AD OLIVIER DIRECTIVE Health Care Decision (hx) 07/09/2023 AD OLIVIER DIRECTIVE Health Care Decision (hx) 07/09/2023 AD OLIVIER DIRECTIVE Health Care Decision (hx) 07/09/2023 AD OLIVIER DIRECTIVE Health Care Decision (hx) 07/09/2023 AD OLIVIER DIRECTIVE Health Care Decision (hx) 07/09/2023 AD OLIVIER DIRECTIVE Health Care Decision (hx) 07/09/2023 AD OLIVIER DIRECTIVE Health Care Decision (hx) 07/06/2023 HE ALTH CARE PROXY Health Care Decision (hx) 07/06/2023 HE ALTH CARE PROXY Health Care Decision (hx) 07/06/2023 HE ALTH CARE PROXY Health Care Decision (hx) 07/06/2023 HE ALTH CARE PROXY Health Care Decision (hx) 07/06/2023 HE ALTH CARE PROXY Health Care Decision (hx) 07/06/2023 HE ALTH CARE PROXY Health Care Decision (hx) 07/06/2023 HE ALTH CARE PROXY Health Care Decision (hx) 07/06/2023 HE ALTH CARE PROXY Health Care Decision (hx) 07/06/2023 HE ALTH CARE PROXY Health Care Decision (hx) 07/06/2023 HE ALTH CARE PROXY Health Care Decision (hx) 07/06/2023 HE ALTH CARE PROXY Health Care Decision (hx) 07/06/2023 HE ALTH CARE PROXY Health Care Decision (hx) 07/06/2023 HE ALTH CARE PROXY Health Care Decision (hx) 07/06/2023 HE ALTH CARE PROXY Health Care Decision (hx) 07/06/2023 HE ALTH CARE PROXY Health Care Decision (hx) 07/06/2023 HE ALTH CARE PROXY Health Care Decision (hx) 07/06/2023 HE ALTH CARE PROXY * No CPR/Do Not Intubate (Latest Code Status on File) Date Activated Date Inactivated Comments 08/10/2025 4:43 PM This code stat us was ascertained in the following way: Code status discussion: discussion with patient, MOLST scanned To update the patient's code status, place a code status order. Do not modify or discontinue any currently active code status orders. Care Teams Clinical Research Specialist Relationship Specialty Start Date End Date Domonique Elaine MD [address] [place] [phone] PCP - General Internal Medicine 07/20/24
--- OUTSIDE RECORDS SUMMARY | 2025-08-22 10:57 | XMS_ITS | Encounter Summary ---
Author Organization [facility] Address [address] [place] [address] Care Team Providers Care Biometry Teacher Name Role Phone Domonique Elaine MD Primary Care Provider [phone] Encounter Details Date Type Department Care Team (Late st Contact Info) Description 07/07/2025 Results Follow-Up Adult Medicine [address] [phone] Domonique Elaine MD [address] [place], [place] Social History Tobacco Use Types Packs/Day Years Used Date Smoking Tobacco: Never Smokeless Tobacco: Never Alcohol Use Standard Drinks/Week Comments Not Currently 0 (1 standard drink = 0.6 oz pur e alcohol) Housing Instability Answer Date Recorde d Are you worried that in the next 2 months you may not have stable housing? No 07/20/2024 Food Access & Nutrition Answer Date Rec orded Do you have access to a vari ety of food including fruits and vegetables? Yes 07/20/2024 Access to Healthcare Answer Date Record ed Within the last 3 months, ho w many times did you visit the emergency department for your medical care? 3 07/20/2024 Health Literacy Answer Date Recorded How often do you need to hav e someone help you when you read instructions, pamphlets, or other written material from your doctor or pharmacy? Never 07/20/2024 Caregiver: How often do you need to have someone help you when you read instructions, pamphlets, or other written material from your doctor or pharmacy? Not on file 07/20/2024 Financial Risk Answer Date Recorded How hard is it for you to pa y for the very basics like food, housing, medical care, and air conditioning / heating? Not very hard 07/20/2024 Transportation Answer Date Recorded Has the lack of transportati on kept you from meetings, work, or from getting things needed for daily living? No Has the lack of transportati on kept you from medical appointments or from getting medications? No 07/20/2024 Social Isolation Answer Date Recorded How often do you feel lonely or isolated from th ose around you? Rarely 07/20/2024 Food Risk Answer Date Recorded Within the past 12 months we worried whether our food would run out before we got money to buy more. Never true 07/20/2024 Within the past 12 months th e food we bought just didn't last and we didn't have money to get more. Never true 07/20/2024 Dependent Care Answer Date Recorded Do you need help finding or paying for care for your loved ones. For example, salesperson children's shoes or elderly care for an older adult? No 07/20/2024 Education Answer Date Recorded Do you think completing more education or training, like finishing a GED, going to college, or learning a trade, would be helpful for you? No 07/20/2024 Employment and Income Answer Date Recor ded During the last four weeks, have you been actively looking for work? No 07/20/2024 Living Situation Answer Date Recorded What is your living situation? Unrecognized valu e 07/20/2024 Sex and Gender Information Value Date Recorded Sex Assigned at Male 03/22/2025 1:07 PM EDT Legal Sex Male 6:03 PM EST Gender Identity Male 03/22/2025 1:07 PM EDT Sexual Orientation Straight 03/22/2025 1: 07 PM EDT documented as of this encounter Plan of Treatment Upcoming Encounters Date Type Department Care Team (Late st Contact Info) Description 10/16/2025 10:40 AM EST Office Visit [facility] [address] [place] [address] Karley Smyth NP [address] [facility] [address] [place] [phone] 11/08/2025 11:30 AM EST Office Visit Adult Medicine [facility] [address] [place] [phone] Domonique Elaine MD [address] [place] [phone] 01/08/2026 10:30 AM EDT Ancillary Procedure [facility] [address] [facility] [address] [place] [phone] documented as of this encounter Visit Diagnoses Not on filedocumented in this encounter Additional Health Concerns Assessment Noted Time PHQ-9 Depression Total Score: 1 03/15/20 25 3:35 PM EDT documented as of this encounter Care Teams Biometry Teacher Relationship Specialty Start Date End Date Domonique Elaine MD [address] [place] [address] PCP - General Internal Medicine 07/20/24 documented as of this encounter
--- OUTSIDE RECORDS SUMMARY | 2025-08-22 10:57 | XMS_ITS | Encounter Summary ---
Author Organization [facility] Address [address] [place] [address] Phone Care Team Providers Care Platform Mill Supervisor Name Role Phone Juan Carrasco MD Primary Care Provider U navailable Encounter Details Date Type Department Care Team (Late st Contact Info) Description 10/19/2017 Procedure Pass [facility] CT Imaging, [place] [address] [place] [address] Social History Tobacco Use Types Packs/Day Years Used Date Smoking Tobacco: Never Smokeless Tobacco: Never Sex and Gender Information Value Date Recorded Sex Assigned at Not on file Legal Sex Male 6:06 PM EST Gender Identity Not on file Sexual Orientation Not on file documented as of this encounter Plan of Treatment Not on file documented as of this encounter Visit Diagnoses Not on filedocumented in this encounter Additional Health Concerns Infection Onset 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 It is not the complete legal health record.[facility]
--- OUTSIDE RECORDS SUMMARY | 2025-08-22 10:57 | XMS_ITS | Clinical Summary ---
Author Organization [facility] Address [address] [place] [address] Phone Care Team Providers Care Completions Manager Name Role Phone Juan Carrasco MD Primary Care Provider U navailable Allergies No known active allergies Medications atorvastatin (LIPITOR) 40 MG tablet Take 40 mg by mouth. 7 Active furosemide (LASIX) 20 MG tablet Take 20 mg by mouth. 7 Active latanoprost (XALATAN) 0.005 % ophthalmic solution Apply 1 drop to eye. 2 Active omeprazole (PRILOSEC) 20 mg TbEC Take 20 mg by mouth. 7 Active sertraline (ZOLOFT) 50 MG tablet TAKE 1 TABLET BY MOUTH ONCE A DAY 7 Active timolol (TIMOPTIC) 0.5 % ophthalmic solution 1 drop. Active diflunisal (DOLOBID) 500 mg Tab Take 250 mg by mouth 2 (two) times a day. 7 Active acetaminophen (TYLENOL) 325 mg tablet Take 2 tablets (650 mg total) by mouth every 6 (six) hours as needed for mild pain. 0 8 Active bisacodyl (DULCOLAX) [address] 1 suppository (10 mg total) rectally daily as needed (moderate constipation). 8 Active Additional Information Patient not taking.Reported on 04/21/2018 docusate sodium (COLACE) 100 MG capsule Take 1 capsule (100 mg total) by mouth 2 (two) times a day. 8 Active Additional Information Patient not taking.Reported on 04/21/2018 polyethylene glycol (MIRALAX) 17 gram packet Take 17 g by mouth daily. 8 Active Additional Information Patient not taking.Reported on 04/21/2018 senna (SENOKOT) 8.6 mg tablet Take 2 tablets by mouth nightly. 8 Active Additional Information Patient not taking.Reported on 04/21/2018 levothyroxine (SYNTHROID,LEVOT HROID) 25 MCG tablet Take 1 tablet (25 mcg total) by mouth every morning. 30 tablet 1 8 Active oxyCODONE 5 MG immediate release tablet Take 1-2 tablets (5-10 mg total) by mouth every 4 (four) hours as needed for moderate pain. Pt. may request partial fill 120 tablet 8 Active Additional Information Patient not taking.Reported on 04/21/2018 cephalexin (KEFLEX) 500 MG capsule Take 1 capsule (500 mg total) by mouth 3 (three) times a day. 30 capsule 8 Active Additional Information Patient not taking.Reported on 04/21/2018 HYDROcodone-acet aminophen (NORCO 10-325) 10-325 mg per tablet Take 1 tablet by mouth every 8 (eight) hours as needed for pain (specific location in comments). Pt. may request partial fill 80 tablet 8 Active Additional Information Patient not taking.Reported on 04/21/2018 pantoprazole (PROTONIX) 20 MG tablet Take 20 mg by mouth 2 (two) times a day. Active gabapentin (NEURONTIN) 300 MG capsule 9 Active warfarin (COUMADIN) 5 MG tablet TAKE 1 TO 2 TABLETS DAILY DIRECTED 7 Active metoprolol tartrate (LOPRESSOR) 25 MG tablet Take 25 mg by mouth. 3 9 Active Medication-Free Text Take 40 mg by mouth daily. 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 Not on peggy e 01/18/2023 Are you concerned about learning? Not on file 01/18/2023 No 01/18/2023 No 01/18/2023 Digital Access Answer Date Recorded No 02/01/2023 No 02/01/2023 No 02/01/2023 Reliable internet access at home? Not on file 02/01/2023 Device with a working camera? Not on file Sex and Gender Information Value Date Recorded Sex Assigned at Not on file Legal Sex Male 6:06 PM EST Gender Identity Not on file Sexual Orientation Not on file Last Filed Vital Signs Vital Sign Reading Time Taken Comments Blood Pressure 121/69 01/21/2019 11:55 AM EDT Pulse 76 01/21/2019 11:55 AM EDT Temperature 36.3 C (97.3 F) 01/21/2019 11:55 AM EDT Respiratory Rate 15 01/21/2019 11:55 AM EDT Oxygen Saturation 96% 01/21/2019 11:55 AM EDT Inhaled Oxygen Concentration 50% 12/18/2017 8 :00 PM EDT Weight 99.4 kg (219 lb 3.2 oz) 01/21/2019 11:55 AM EDT Height 176.5 cm (5' 9.49 ) 01/21/2019 11:55 AM E DT Body Mass Index 31.92 01/21/2019 11:55 AM EDT Plan of Treatment Health Maintenance Due Date Last Done Comments DEPRESSION SCREENING 1947 ZOSTER VACCINES (2 of 3) 11/06/2010 09/11/2010 RSV VACCINE (1 - 1-dose 75+ series) 2012 TSH LEVEL 12/23/2018 12/23/2017 Adult Td,Tdap Booster 11/30/2023 11/29/2013, 007 INFLUENZA VACCINE (#1) 2025 9, 05/11/2018, 06/02/2017, Additional history exists COVID-19 VACCINE (3 - season) 2025 10/31/2020, 10/10/2020 PNEUMOCOCCAL VACCINES (50+ years) Completed 09/12/2015, 06/11/2007 HEPATITIS A VACCINES Aged Out No long er eligible based on patient's age to complete this topic HIB VACCINES Aged Out No longer eligi ble based on patient's age to complete this topic MENINGOCOCCAL VACCINES (ACWY) Aged Out No longer eligible based on patient's age to complete this topic MENINGOCOCCAL VACCINES (B) Aged Out N o longer eligible based on patient's age to complete this topic Medical Devices Implanted Type Area Biomedical Equipment Technician Device Identifier Shelf Expiration Date Model / Serial / Lot Tissue Human [id number] 0.53 To 1.02 Alloderm Medium - [id number] Implanted:Qty: 1 on 12/17/2017 by Jarocho Mistry MD at [facility] [place] [employer] 09/07/2019 [id number] / / [id number] Graft Bone 1to8mm 60ml Preservon Chip Readigraft Cancellous Implantable - [id number] Implanted:Qty: 1 on 12/17/2017 by Jarocho Mistry MD at [facility] [employer] [employer] [employer] 10/02/2022 [id number] / [id number] / Screw Polyaxial Open Ti Pk/1ea - [id number] Implanted:Qty: 8 on 12/17/2017 by Jarocho Mistry MD at [facility] [employer] [id number] / / Screw Reline Lock 5.5mm Open Tulip - [id number] Implanted:Qty: 18 on 12/17/2017 by Jarocho Mistry MD at [facility] [employer] [id number] / / Nuvasive Iliac Connector Implanted:Qty: 2 on 12/17/2017 by Jarocho Mistry MD at [facility] / [id number] / Cross Connector Implanted:Qty: 1 on 12/17/2017 by Jarocho Mistry MD at [facility] [id number] / / Connector Reline 20mm Open Offset - [id number] Implanted:Qty: 2 on 12/17/2017 by Jarocho Mistry MD at [facility] [employer] [id number] / / Description:transferred from non integrated item Luis Manuel X Connector Reline Lp Adjustable 45 65mm 5.5 - [id number] Implanted:Qty: 1 on 12/17/2017 by Jarocho Mistry MD at [facility] [employer] [id number] / / Description:transferred from nonintegrated item Luis Manuel Reline-O Ti 5.0c297hy Straight - [id number] Implanted:Qty: 3 on 12/17/2017 by Jarocho Mistry MD at [facility] [employer] [id number] / / Procedures Procedure Name Priority Date/Time Associated Diagnosis Comments THYROID STIMULATING HORMONE (TSH) Routine 12/23/2017 5:16 AM EDT from Last 3 Months or Most Recently Relevant to Health Maintenance Results * (ABNORMAL) TSH (12/23/2017 5:16 AM EDT) TSH 9.77(H) 0.50 - 5.70 uIU/mL [facility] 12/23/2017 5:16 AM EDT 12/23/2017 6:38 AM EDT Comment:#TSH ADDED PER [id number] 60 AT 0721 us Cole Salgado MD LAB BLOOD BKR ORDERABLES Fin al Result [facility] [address] [place] [id number] from Last 3 Months or Most Recently Relevant to Health Maintenance Insurance [place] MED[place] P[place] BLUE REPLACEMENT MEDICARE PPO BLUE REPLACEMENT MEDICARE PPO BLUE REPLACEMENT MEDICARE PPO BLUE REPLACEMENT MEDICARE PPO BLUE REPLACEMENT MEDICARE PPO BLUE REPLACEMENT MEDICARE PPO BLUE REPLACEMENT MEDICARE PPO BLUE REPLACEMENT MEDICARE PPO BLUE REPLACEMENT Advance Directives For more information, please contact: [phone] (9AM - 5PM Elli/[facility], Thursday-Thursday) Documents on File Type Date Recorded Patient [employer] anation Healthcare Proxy 12/17/2017 5:41 AM * Full Code (Presumed) (Latest Code Status on File) Date Activated Date Inactivated Comments 12/18/2017 1:45 AM 12/26/2017 7:10 PM Healthcare Agents on File Name Relationship Healthcare Agent Relationshi p Communication Yousuf Andino Spouse .Primary Healt h Care Agent (Proxy form on file) Ludy Andino Daughter Alternate Heal thcare Agent (Proxy form on file) Care Teams Completions Manager Relationship Specialty Start Date End Date Juan Carrasco MD PCP - General Internal Medicine 10/05/17 Additional Source Comments The information contained in this document represents components of the legal health record. It is not the complete legal health record.[facility]
--- OUTSIDE RECORDS SUMMARY | 2025-08-22 10:57 | XMS_ITS | Encounter Summary ---
Author Organization [facility] Address [address] [place] [address] Phone Care Team Providers Care Track Equipment Operator Name Role Phone Juan Carrasco MD Primary Care Provider U navailable Encounter Details Date Type Department Care Team (Late st Contact Info) Description 10/19/2017 Procedure Pass [facility] CT Imaging, [place] [address] [place] [address] Social History Tobacco Use Types Packs/Day Years [...] documented as of this encounter Care Teams Track Equipment Operator Relationship Specialty Start Date End Date Juan Carrasco MD PCP - General Internal Medicine 10/05/17 documented as of this encounter Additional Source Comments The information contained in this document represents components of the legal health record. It is not the complete legal health record.[facility]
--- OUTSIDE RECORDS SUMMARY | 2025-08-22 10:58 | XMS_ITS | Encounter Summary ---
Author Organization [facility] Address [address] [place] [address] Phone Care Team Providers Care Order Administrator Name Role Phone Juan Carrasco MD Primary Care Provider U navailable Encounter Details Date Type Department Care Team (Late st Contact Info) Description 10/07/2017 Procedure Pass [facility] [address] [place] [address] Social History Tobacco Use Types Packs/Day Years Used Date Smoking Tobacco: Never Assessed Sex and Gender Information Value Date Recorded [...] documented as of this encounter Care Teams Order Administrator Relationship Specialty Start Date End Date Juan Carrasco MD PCP - General Internal Medicine 10/05/17 documented as of this encounter Additional Source Comments The information contained in this document represents components of the legal health record. It is not the complete legal health record.[facility]
--- OUTSIDE RECORDS SUMMARY | 2025-08-22 10:58 | XMS_ITS | Encounter Summary ---
Author Organization [facility] Address [address] [place] [address] Phone Care Team Providers Care Ground Source Heat Pump Technician Name Role Phone Juan Carrasco MD Primary Care Provider U navailable Encounter Details Date Type Department Care Team (Late st Contact Info) Description 10/07/2017 Procedure Pass [facility] [address] [place] [address] Social History Tobacco Use Types Packs/Day Years [...] documented as of this encounter Care Teams Ground Source Heat Pump Technician Relationship Specialty Start Date End Date Juan Carrasco MD PCP - General Internal Medicine 10/05/17 documented as of this encounter Additional Source Comments The information contained in this document represents components of the legal health record. It is not the complete legal health record.[facility]
--- OUTSIDE RECORDS SUMMARY | 2025-08-22 10:58 | XMS_ITS | Encounter Summary ---
Author Organization [facility] Address [address] [place] [address] Phone Care Team Providers Care Embedded Firmware Engineer Name Role Phone Juan Carrasco MD Primary Care Provider U navailable Encounter Details Date Type Department Care Team (Late st Contact Info) Description 10/07/2017 Procedure Pass [facility] [address] [place] [address] Social History Tobacco Use Types Packs/Day Years [...] documented as of this encounter Care Teams Embedded Firmware Engineer Relationship Specialty Start Date End Date Juan Carrasco MD PCP - General Internal Medicine 10/05/17 documented as of this encounter Additional Source Comments The information contained in this document represents components of the legal health record. It is not the complete legal health record.[facility]
--- OUTSIDE RECORDS SUMMARY | 2025-08-22 10:58 | XMS_ITS | Encounter Summary ---
Author Organization [facility] Address [address] [place] [address] Phone Care Team Providers Care Scruff Worker Name Role Phone Juan Carrasco MD Primary Care Provider U navailable Encounter Details Date Type Department Care Team (Late st Contact Info) Description 10/07/2017 Procedure Pass [facility] [address] [place] [address] Social History Tobacco Use Types Packs/Day Years [...] documented as of this encounter Care Teams Scruff Worker Relationship Specialty Start Date End Date Juan Carrasco MD PCP - General Internal Medicine 10/05/17 documented as of this encounter Additional Source Comments The information contained in this document represents components of the legal health record. It is not the complete legal health record.[facility]
--- OUTSIDE RECORDS SUMMARY | 2025-08-22 10:59 | XMS_ITS | Encounter Summary ---
Author Organization [facility] Address [address] [place] [address] Phone Care Team Providers Care University Lecturer Name Role Phone Juan Carrasco MD Primary Care Provider U navailable Encounter Details Date Type Department Care Team (Late st Contact Info) Description 10/07/2017 Procedure Pass [facility] [address] [place] [address] Social History Tobacco Use Types Packs/Day Years [...] documented as of this encounter Care Teams University Lecturer Relationship Specialty Start Date End Date Juan Carrasco MD PCP - General Internal Medicine 10/05/17 documented as of this encounter Additional Source Comments The information contained in this document represents components of the legal health record. It is not the complete legal health record.[facility]
--- OUTSIDE RECORDS SUMMARY | 2025-08-22 10:59 | XMS_ITS | Encounter Summary ---
Author Organization [facility] Address [address] [place] [address] Phone Care Team Providers Care Optical Mechanic Apprentice Name Role Phone Juan Carrasco MD Primary Care Provider U navailable Encounter Details Date Type Department Care Team (Late st Contact Info) Description 12/17/2017 Procedure Pass [facility] [address] [place] [address] Social History Tobacco Use Types Packs/Day Years Used Date Smoking Tobacco: Never Smokeless Tobacco: Never Alcohol Use Standard Drinks/Week Comments Yes 7 (1 standard drink = 0.6 oz pur e alcohol) Sex and Gender Information Value Date Recorded [...] documented as of this encounter Care Teams Optical Mechanic Apprentice Relationship Specialty Start Date End Date Juan Carrasco MD PCP - General Internal Medicine 10/05/17 documented as of this encounter Additional Source Comments The information contained in this document represents components of the legal health record. It is not the complete legal health record.[facility]
--- OUTSIDE RECORDS SUMMARY | 2025-08-22 10:59 | XMS_ITS | Encounter Summary ---
Author Organization [facility] Address [address] [place] [address] Phone Care Team Providers Care Cellular Plastics Cutter Name Role Phone Juan Carrasco MD Primary Care Provider U navailable Encounter Details Date Type Department Care Team (Late st Contact Info) Description 10/07/2017 Procedure Pass [facility] [address] [place] [address] Social History Tobacco Use Types Packs/Day Years [...] documented as of this encounter Care Teams Cellular Plastics Cutter Relationship Specialty Start Date End Date Juan Carrasco MD PCP - General Internal Medicine 10/05/17 documented as of this encounter Additional Source Comments The information contained in this document represents components of the legal health record. It is not the complete legal health record.[facility]
--- OUTSIDE RECORDS SUMMARY | 2025-08-22 10:59 | XMS_ITS | Encounter Summary ---
Author Organization [facility] Address [address] [place] [address] Phone Care Team Providers Care Medical Records Tech Name Role Phone Juan Carrasco MD Primary Care Provider U navailable Encounter Details Date Type Department Care Team (Late st Contact Info) Description 10/07/2017 Procedure Pass [facility] [address] [place] [address] Social History Tobacco Use Types Packs/Day Years [...] documented as of this encounter Care Teams Medical Records Tech Relationship Specialty Start Date End Date Juan Carrasco MD PCP - General Internal Medicine 10/05/17 documented as of this encounter Additional Source Comments The information contained in this document represents components of the legal health record. It is not the complete legal health record.[facility]
--- OUTSIDE RECORDS SUMMARY | 2025-08-22 10:59 | XMS_ITS | Encounter Summary ---
Author Organization [facility] Address [address] [place] [id number] Phone Care Team Providers Care Fire Control Assistant Name Role Phone Juan Carrasco MD [facility] Encounter Details Date Type Department Care Team (Late st Contact Info) Description 12/17/2017 Procedure [facility] [address] [place] [address] Social History Tobacco Use Types Packs/Day Years [...] documented as of this encounter Care Teams Fire Control Assistant Relationship Specialty Start Date End Date Juan Carrasco MD PCP - General Internal Medicine 10/05/17 documented as of this encounter Additional Source Comments The information contained in this document represents components of the legal health record. It is not the complete legal health record.[facility]
== END 2025-08-22 09:51 | disposition home or self-care (01) ==
LOC: HO.HPHYS 09:27
PROVIDERS: PCP Internal Medicine; Visit Provider Physical Medicine & Rehabilitation
DX: M17.12 Unilateral primary osteoarthritis, left knee (principal); M54.2 Cervicalgia; M54.12 Radiculopathy, cervical region; M25.512 Pain in left shoulder; M96.1 Postlaminectomy syndrome, not elsewhere classified
CPT/HCPCS: 20610; 99214

== ENCOUNTER → 2025-08-22 09:27 | Outpatient (BNVA) | payer MEDICARE, SELFPAY | PROVIDERS: PCP Internal Medicine; Visit Provider Physical Medicine & Rehabilitation | DX: M17.12 Unilateral primary osteoarthritis, left knee (principal); M96.1 Postlaminectomy syndrome, not elsewhere classified; M54.12 Radiculopathy, cervical region; G89.29 Other chronic pain; M25.512 Pain in left shoulder; R20.0 Anesthesia of skin | CPT/HCPCS: 20610; 99212; J2003; J3301 ==